=== PATIENT | male | born 1965 | race Hispanic/Latino ===

== ENCOUNTER 2022-11-29 08:20 | Emergency (ER) | payer OTHER, SELFPAY ==
[~2022-11-29] VITALS: Ht 167.6 cm; Wt 99.8 kg
[2022-11-29 08:54] LABS: BASOPHILS % (AUTO) 0.3 % (0.0-5.0); LYMPHOCYTES % (AUTO) 11.2 % (21.0-51.0); MEAN CORPUSCULAR HEMOGLOBIN 29.4 pg (27.0-33.0); MEAN CORPUSCULAR HGB CONC 33.7 g/dL (32.0-36.0); MEAN CORPUSCULAR VOLUME 87.2 fL (79-99); MONOCYTES % (AUTO) 5.6 % (3.0-13.0); NEUTROPHILS % (AUTO) 80.6 % (40.0-77.0); PLATELET COUNT (AUTO) 162 K/uL (130-400); RED BLOOD CELL COUNT(AUTO) 4.93 MIL/uL (4.50-6.20); RED CELL DISTRIBUTION WIDTH 12.9 % (11.0-15.5); WHITE BLOOD COUNT (AUTO) 9.5 K/uL (4.8-10.8)
[2022-11-29] MEDS ORDERED: LACTATED RINGERS 1000ML 1,000 ML IV ONE (09:00)
[2022-11-29] MEDS ORDERED: ONDANSETRON 4MG INJ IVP ONE (09:00)
[2022-11-29 09:08] LABS: ALANINE AMINOTRANSFERASE 33 U/L (12-78); ALBUMIN 3.6 g/dL (3.5-5.0); AMYLASE 28 U/L (25-115); ASPARTATE AMINOTRANSFERASE 18 U/L (10-37); CARBON DIOXIDE 28 mmol/L (21-32); CHLORIDE 102 mmol/L (101-111); CREATININE 1.3 mg/dL (0.5-1.5); GLOMERULAR FILTR. RATE CALC 64 mL/min (>90); GLUCOSE,RANDOM 119 mg/dL (70-105); POTASSIUM 3.3 mmol/L (3.5-5.1); SODIUM SERUM 136 mmol/L (136-145); TOTAL PROTEIN, SERUM 7.4 g/dL (6.0-8.3); UREA NITROGEN, BLOOD 21 mg/dL (7-18)
[2022-11-29 09:11] LABS: LIPASE < 50 U/L (114-286)
[2022-11-29 09:32] LABS: APPEARANCE,URINE CLEAR (CLEAR); BILIRUBIN,URINE NEGATIVE (NEGATIVE); COLOR,URINE YELLOW (YELLOW); GLUCOSE, URINE (UA) NEGATIVE (NEGATIVE); KETONES,URINE NEGATIVE (NEGATIVE); LEUKOCYTE ESTERASE ,URINE NEGATIVE Leu/uL (NEGATIVE); NITRATE,URINE NEGATIVE (NEGATIVE); OCCULT BLOOD,URINE SMALL (NEGATIVE); PROTEIN,URINE 100 mg/dL (NEGATIVE); UROBILINOGEN,URINE 0.2 mg/dL (0.2-1.0)
[2022-11-29 10:13] LABS: BACTERIA,URINE RARE /HPF (None Seen); MUCUS,URINE FEW LPF (None Seen); SQUAMOUS EPITHELIAL CELL,UR RARE /HPF (0-2)
[2022-11-29 10:45] VITALS: BP 124/76
[2022-11-29] MEDS ORDERED: ZOSYN 3.375GM +NS 50ML IVPB ONE (11:00)
[2022-11-29] MEDS ORDERED: LEVO750T68 PO (13:10)
[2022-11-29] MEDS ORDERED: TRAM-355 PO ×2 (13:12→13:19)
== END 2022-11-29 13:32 | disposition home or self-care (01) ==
LOC: EDH 08:20
DX: K52.9 Noninfective gastroenteritis and colitis, unspecified (principal); K21.9 Gastro-esophageal reflux disease without esophagitis; Z20.822 Contact with and (suspected) exposure to COVID-19
CPT/HCPCS: 99285; 74176; 96365; 96361; 87635; 96375; 82150; 84484; 80053; 83690; 85025; 81001; 36415; 93005; C9803; J7120; J2405; J2543